=== PATIENT | male | born 1980 | race Two or more races ===

== ENCOUNTER 2022-02-12 15:29 | Emergency (ER) | payer MEDICAID ==
[~2022-02-12] VITALS: Ht 193 cm; Wt 86.6 kg
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
[2022-02-12] MEDS ORDERED: TDAP [DIPH/PERTUSSIS/TET] 0.5 ML VIAL IM ONE ×2 (17:00→17:01)
[2022-02-12] MEDS ORDERED: CEPH500C2 PO (17:03)
--- NOTE | 2022-02-12 17:14 | NUR ---
Patient discharged to home in stable condition. Written and verbal after care instructions given. Patient verbalizes understanding of instruction.
[2022-02-12 17:17] VITALS: BP 135/70
== END 2022-02-12 17:18 | disposition home or self-care (01) ==
LOC: ER 15:59
DX: S70.01XA Contusion of right hip, initial encounter (principal); S90.121A Contusion of right lesser toe(s) without damage to nail, initial encounter; S50.311A Abrasion of right elbow, initial encounter; F17.200 Nicotine dependence, unspecified, uncomplicated; Z60.2 Problems related to living alone; V19.88XA Pedal cyclist (driver) (passenger) injured in other specified transport accidents, initial encounter; Y93.89 Activity, other specified; Y92.89 Other specified places as the place of occurrence of the external cause; Y99.8 Other external cause status
CPT/HCPCS: 73502; 73660; 90471; 90715; 99284; A6403